=== PATIENT | male | born 1975 | race Caucasian/White ===

== ENCOUNTER 2025-07-21 20:06 | Emergency (ER) | payer SELFPAY ==
[2025-07-21 20:25] VITALS: BMI 21.1
[2025-07-21 20:26] VITALS: BP 142/97
--- NOTE | 2025-07-21 20:38 | ED.SKININJ ---
HPI-Injury
<Julien Castillo PA-C - Last Filed: 07/21/25 23:10>
General
Chief Complaint: Skin Problem
Source: patient
Exam Limitations: none
Time Seen by Provider: 07/21/25 20:26
History of Present Illness-Injury
Initial Injury comments:
49-year-old male presents with complaints of persistent swelling and pain to the right middle finger. About 1 month ago, he got his finger pinched in a door and had what he thought was a blood blister. He left the blood blister go and eventually
had necrosis and the tip of his finger fell off. During this time he was arrested. He has been in longterm. Upon entrance into longterm at the beginning of this month he was started on Bactrim and doxycycline for 10 days. He also has been using
Tranch. He notes wounds to the right and left forearms that have been healing as well
Phy Exam
<Julien Castillo PA-C - Last Filed: 07/21/25 23:10>
Physical Exam
Physical Exam:
General: Well-appearing male no acute respiratory distress HEENT: Normal cephalic atraumatic
Heart: Regular rate and rhythm
Lungs: Clear no wheeze
Skin: Erythema and swelling noted to the distal right middle finger. The swelling extends into the hand. There is wounds on bilateral forearms that are in the healing process. No drainage. The right middle finger wound does appear as though that
there is a small piece of bone protruding. Musculoskeletal exam: The right middle finger is tender to the touch
Course
<Julien Castillo PA-C - Last Filed: 07/21/25 23:10>
Orders/Labs/Results
Orders:
Orders
07/21/25 20:35
CR Hand - Right Min 3 Views Urgent
Comment:
Reason For Exam: swelling, pain, infection middle finger
07/21/25 21:25
Complete Blood Count/With Diff Urgent
Comprehensive Metabolic Panel Urgent
07/21/25 23:07
Cephalexin Monohydrate [Keflex] 500 mg PO NOW STA
Sulfamethox./Trimethoprim Ds [Bactrim Ds 800 mg/160 mg] 1 tablet PO NOW STA
Abnormal Lab Results
07/21/25
21:25
RBC 3.19 L 10^6/uL
(4.70-6.10)
Hgb 9.1 L g/dL
(13.0-18.0)
Hct 26.8 L %
(39.0-52.0)
Monocytes % 11.1 H %
(1.7-9.3)
Eosinophils % 8.9 H %
(0-6)
Sodium 134 L mmol/L
(135-145)
07/21/25 21:25
07/21/25 21:25
Vital Signs
Initial and Last Documented VS:
Initial Vital Signs
Temp Pulse Resp BP Pulse Ox
98.7 F 77 16 142/97 100
07/21/25 20:26 07/21/25 20:26 07/21/25 20:26 07/21/25 20:26 07/21/25 20:26
Last Documented Vital Signs
Temp Pulse Resp BP Pulse Ox
98.7 F 77 16 142/97 100
07/21/25 20:26 07/21/25 20:26 07/21/25 20:26 07/21/25 20:26 07/21/25 20:41
<Kiara Mosher MD - Last Filed: 07/21/25 21:24>
Orders/Labs/Results
Orders:
Orders
07/21/25 20:35
CR Hand - Right Min 3 Views Urgent
Comment:
Reason For Exam: swelling, pain, infection middle finger
07/21/25 21:25
Complete Blood Count/With Diff Urgent
Comprehensive Metabolic Panel Urgent
07/21/25 23:07
Cephalexin Monohydrate [Keflex] 500 mg PO NOW STA
Sulfamethox./Trimethoprim Ds [Bactrim Ds 800 mg/160 mg] 1 tablet PO NOW STA
Abnormal Lab Results
07/21/25
21:25
RBC 3.19 L 10^6/uL
(4.70-6.10)
Hgb 9.1 L g/dL
(13.0-18.0)
Hct 26.8 L %
(39.0-52.0)
Monocytes % 11.1 H %
(1.7-9.3)
Eosinophils % 8.9 H %
(0-6)
Sodium 134 L mmol/L
(135-145)
07/21/25 21:25
07/21/25 21:25
Vital Signs
Initial and Last Documented VS:
Initial Vital Signs
Temp Pulse Resp BP Pulse Ox
98.7 F 77 16 142/97 100
07/21/25 20:26 07/21/25 20:26 07/21/25 20:26 07/21/25 20:26 07/21/25 20:26
Last Documented Vital Signs
Temp Pulse Resp BP Pulse Ox
98.7 F 77 16 142/97 100
07/21/25 20:26 07/21/25 20:26 07/21/25 20:26 07/21/25 20:26 07/21/25 20:41
<Julien Castillo PA-C - Last Filed: 07/21/25 23:10>
MDM/Problems Addressed
Differential Diagnosis Includes:
Patient with persistent swelling and pain to the right middle finger with recent avulsion of prior blood blister. Question for possible exposed bone. X-rays pending. Will check labs. Consider cellulitis versus tenosynovitis. No obvious sign of
a drainable abscess.
<Julien Castillo PA-C - Last Filed: 07/21/25 23:10>
*Pulse Oximetry
SaO2: 100
Oxygen Mode of Delivery: Room air
Patient hypoxic: no
*Critical Care Note
Total Time (30-74mins, 75-104mins- exclusive of procedures): Not Applicable
<Julien Castillo PA-C - Last Filed: 07/21/25 23:10>
Update Note
Update Note:
X-rays reviewed labs reviewed. White count is normal. Patient overall otherwise nontoxic. Discussed with emergency room attending as well as orthopedics. Per orthopedics, nothing urgent going on that requires admission. Will start on Bactrim
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
ED Attending Note
<Julien Castillo PA-C - Last Filed: 07/21/25 23:10>
-
Portions of this chart may have been created with voice recognition software.� Occasional wrong word or��sound alike� substitutions may have occurred due to the inherent limitations of voice recognition software.
<Kiara Mosher MD - Last Filed: 07/21/25 21:24>
ED Attending Note
Patient seen and examined by attending physician: Yes
I performed the substantive portion of visit, reviewed & personally made and approve the management plan that is documented in note by myself or PRIYA.: Yes
ED Attending Note:
49-year-old male who was recently incarcerated earlier this month, and at that present was started on Doxy and Bactrim for a infection noted at his fourth digit. He said he suffered a injury when he accidentally got it caught in a door. Today, he
says that the area that turned 'black' came off which prompted his visit here. He notes now area is swollen and slightly erythematous. He denies active discharge, fever, chills, numbness, tingling, or other complaints.
Discharge Plan
Departure
Patient Disposition: Home (Routine Discharge)
Date of Disposition: 07/21/25
Time of Disposition: 23:08
Patient with high blood pressure during this ER visit?: No
Discharge Problem:
finger wound
Instructions: Cellulitis (Skin Infection), Adult (DC)
Prescriptions:
New
sulfamethoxazole-trimethoprim [Bactrim DS] 800-160 mg tablet
1 tab PO BID Qty: 14 0RF
cephalexin 500 mg capsule
500 mg PO Q6H 7 Days Qty: 28 0RF
No Action
methadone 10 mg Tablet
120 mg PO DAILY
metoprolol succinate 25 mg Tablet Extended Release 24 Hr
25 mg PO DAILY
Referrals:
UNKNOWN - PT DOES,NOT KNOW [Family Provider]
Lul Wilder MD [Active, Orthopedics]
Activity Restrictions/Additional Instructions:
Keep changing dressing daily. Take antibiotics as directed. Follow-up with orthopedics as outpatient for further evaluation
Interventions
Interventions:
*General Assessment Last Done: 07/21/25 20:26
*Neglect/Abuse Screening Last Done: 07/21/25 20:26
*ED COVID-19 Vaccine History Last Done: 07/21/25 20:26
*ED Influenza Vaccine History Last Done: 07/21/25 20:26
*Risk Screen - Suicide (C-SSRS) Last Done: 07/21/25 20:26
Discharge Date and Time
Print Language: PASHTO
[2025-07-21 21:39] LABS: Hematocrit 26.8 % (39.0-52.0); Hemoglobin 9.1 g/dL (13.0-18.0); Mean Corp Hgb Conc. 34.0 g/dL (33.0-37.0); Mean Corpuscular Volume 84.0 fL (80.0-94.0); Nucleated Red Blood Cells % 0 % (-); Platelet Count 252 10^3/uL (130-400); Red Cell Dist. Width 13.9 % (11.5-14.5)
[2025-07-21 22:03] LABS: ALT (SGPT) 13 U/L (0-50); AST (SGOT) 20 U/L (17-59); Albumin 4.1 g/dl (3.5-5.0); Alkaline Phosphatase 88 U/L (38-126); Blood Urea Nitrogen 15 mg/dl (9-20); Calcium 9.6 mg/dl (8.4-10.2); Carbon Dioxide 29 mmol/L (22-30); Chloride 100 mmol/L (98-107); Estimated Creatinine Clearance 101 ml/min; Glucose 82 mg/dl (70-99); Potassium 4.8 mmol/L (3.5-5.1); Sodium 134 mmol/L (135-145); Total Protein 7.9 g/dl (6.3-8.2); eGFR > 60.00
[2025-07-21] MEDS: KEFLEX 500 MG PO (23:18)
[2025-07-21] MEDS: BACTRIM DS 800 MG/160 MG 1 TABLET PO (23:18)
== END 2025-07-21 23:46 ==
LOC: EMR 20:06
PROVIDERS: Physician Assistant; EMERGENCY PHYSICIAN Emergency Medicine
DX: S61.202A Unspecified open wound of right middle finger without damage to nail, initial encounter (principal); W23.0XXA Caught, crushed, jammed, or pinched between moving objects, initial encounter
CPT/HCPCS: 99284; 73130; 80053; 85025